=== PATIENT | female | born 1970 | race African-American/Black ===

== ENCOUNTER 2017-08-18 05:06 | Inpatient (IN) ==
[2017-08-18] MEDS ORDERED: methylPREDNISolone SOD SUC 125 MG/2 ML VIAL IV STA (06:04)
[2017-08-18 06:16] LABS: Basophils # 0.1 10*3/uL (0.0-0.2); Basophils % 0.6 % (0.0-0.8); Eosinophils # 0.1 10*3/uL (0.0-0.87); Eosinophils % 0.4 % (0.00-10.9); Hematocrit 34.5 VOL% (35.7-47.0); Hemoglobin 11.8 GM/DL (12.0-16.0); Immature Granulocytes % 0.6 %; Immature Granulocytes Absolute 0.08 #; Lymphocytes # 3.7 10*3/uL (1.4-4.0); Mean Corpuscular HGB Conc 34.2 GM/DL (32-36); Mean Corpuscular Hemoglobin 30 PG (27-34); Mean Corpuscular Volume 88.9 FL (87-102); Mean Platelet Volume 12.1 FL (9.6-12.0); Monocytes # 1.1 10*3/uL (0.11-0.8); Monocytes % 7.6 % (1.7-12.7); Neutrophils # 9.3 10*3/uL (1.4-7.4); Neutrophils % 64.8 % (38.7-73.9); Platelet Count 272 T/CUMM (130-400); Red Blood Count 3.88 MC/CUMM (3.8-5.5); Red Cell Distribution Width 11.8 % (9.3-17.3); White Blood Count 14.3 T/CUMM (4-12)
[2017-08-18] MEDS: ALBUTEROL 2.5 MG/3 ML NEB RESP TX SCH ×2 (06:19→06:20)
[2017-08-18] MEDS ORDERED: methylPREDNISolone SOD SUC 40 MG/1 ML VIAL ONE (06:20)
[2017-08-18] MEDS ORDERED: LEVOFLOXACIN INJ 750 MG in PREMIX 1 EACH IV STA (07:49)
[2017-08-18] MEDS ORDERED: LEVOFLOXACIN INJ 150 ML IV ONE (07:53)
[2017-08-18] MEDS ORDERED: ALBUTEROL 2.5 MG/3 ML NEB RESP TX PRN (09:27)
[2017-08-18] MEDS ORDERED: ACETAMINOPHEN 325 MG TABLET PO PRN (09:29)
[2017-08-18] MEDS ORDERED: ZALEPLON 5 MG CAPSULE PO PRN (09:29)
[2017-08-18] MEDS ORDERED: ONDANSETRON 4 MG/2 ML VIAL IV PRN (09:29)
[2017-08-18] MEDS ORDERED: MORPHINE 2 MG/1 ML SYRINGE IV PRN (09:29)
[2017-08-18] MEDS: LEVOFLOXACIN INJ 750 MG in PREMIX 1 EACH IV SCH (10:07)
[2017-08-18] MEDS: SODIUM CHLORIDE 0.9% 1,000 ML IV SCH ×2 (10:11→21:00)
[2017-08-18 10:40] LABS: Apearance,Urine Clear (Clear); Urine Color Straw (Yellow); Urine Specific Gravity 1.005 (1.001-1.035)
[2017-08-18 10:41] LABS: Bilirubin,Urine Negative (Negative); Blood, Urine Negative (Negative); Glucose,Urine (UA) Negative (Negative); Ketones,Urine Negative (Negative); Nitrite,Urine Negative (Negative); Protein,Urine Negative; Urine Urobilinogen 0.2 EU/DL (0.2-1.0)
[2017-08-18 10:42] LABS: Basophils % 0.3 % (0.0-0.8); Eosinophils % 0.1 % (0.00-10.9); Hematocrit 37.8 VOL% (35.7-47.0); Hemoglobin 11.8 GM/DL (12.0-16.0); Immature Granulocytes % 0.6 %; Immature Granulocytes Absolute 0.09 #; Lymphocytes # 1.2 10*3/uL (1.4-4.0); Lymphocytes % 8.6 % (21.3-54.2); Mean Corpuscular HGB Conc 31.2 GM/DL (32-36); Mean Corpuscular Hemoglobin 29 PG (27-34); Mean Corpuscular Volume 93.6 FL (87-102); Mean Platelet Volume 12.7 FL (9.6-12.0); Monocytes # 0.4 10*3/uL (0.11-0.8); Monocytes % 2.6 % (1.7-12.7); Neutrophils # 12.6 10*3/uL (1.4-7.4); Neutrophils % 87.8 % (38.7-73.9); Platelet Count 227 T/CUMM (130-400); Red Blood Count 4.04 MC/CUMM (3.8-5.5); Red Cell Distribution Width 11.9 % (9.3-17.3); White Blood Count 14.3 T/CUMM (4-12)
[2017-08-18] MEDS: PIPERACILLIN/TAZOBACTAM 3,375 MG in SODIUM CHLORIDE 0.9% 100 ML IV SCH ×2 (10:42→18:04)
[2017-08-18 11:13] LABS: Albumin 3.5 G/DL (3.4-5.0); Bilirubin,Total 0.7 MG/DL (0.2-1.0); Potassium 3.6 MMOL/L (3.5-5.1); Total Protein 7.7 G/DL (6.4-8.3)
[2017-08-18 11:15] LABS: Lactic Acid 5.4 MMOL/L (0.4-2.0)
[2017-08-18 11:50] LABS: Risk Ratio 4.87; Thyroid Stimulating Hormone 0.926 uIU/ml (0.358-3.74)
[2017-08-18 12:00] LABS: HIV Antigen/Antibody Result Nonreactive (Nonreactive)
[2017-08-18] MEDS ORDERED: guaiFENesin/CODEINE 5 ML LIQUID PO PRN (12:13)
[2017-08-18] MEDS: ALBUTEROL/IPRATROPIUM 3 ML NEB RESP TX SCH ×2 (14:21→19:59)
[2017-08-18 15:55] LABS: Lactic Acid 3.7 MMOL/L (0.4-2.0)
[2017-08-18] MEDS: guaiFENesin/DM ER 600-30 MG TABLET PO SCH (21:00)
[2017-08-18] MEDS: DOCUSATE SODIUM 100 MG CAPSULE PO SCH (21:00)
[2017-08-18] MEDS: ENOXAPARIN 40 MG/0.4 ML SYRINGE SUBCUT SCH (21:00)
[2017-08-19] MEDS: ALBUTEROL/IPRATROPIUM 3 ML NEB RESP TX SCH ×4 (01:15→19:38)
[2017-08-19] MEDS: PIPERACILLIN/TAZOBACTAM 3,375 MG in SODIUM CHLORIDE 0.9% 100 ML IV SCH (02:54)
[2017-08-19 06:29] LABS: Basophils # 0.1 10*3/uL (0.0-0.2); Basophils % 0.4 % (0.0-0.8); Eosinophils % 0.2 % (0.00-10.9); Hematocrit 33.5 VOL% (35.7-47.0); Hemoglobin 10.7 GM/DL (12.0-16.0); Immature Granulocytes % 0.6 %; Immature Granulocytes Absolute 0.07 #; Lymphocytes # 3.1 10*3/uL (1.4-4.0); Lymphocytes % 27.3 % (21.3-54.2); Mean Corpuscular HGB Conc 31.9 GM/DL (32-36); Mean Corpuscular Hemoglobin 29 PG (27-34); Mean Corpuscular Volume 91.8 FL (87-102); Mean Platelet Volume 11.6 FL (9.6-12.0); Monocytes % 9.1 % (1.7-12.7); Neutrophils # 7.1 10*3/uL (1.4-7.4); Neutrophils % 62.4 % (38.7-73.9); Platelet Count 242 T/CUMM (130-400); Red Blood Count 3.65 MC/CUMM (3.8-5.5); Red Cell Distribution Width 11.9 % (9.3-17.3); White Blood Count 11.4 T/CUMM (4-12)
[2017-08-19 07:14] LABS: Albumin 3.1 G/DL (3.4-5.0); Bilirubin,Total 1.3 MG/DL (0.2-1.0); Calcium 8.4 MG/DL (8.5-10.1); Osmolality,Calculated 283.8 MOS/KG (273-304); Potassium 3.7 MMOL/L (3.5-5.1); Total Protein 6.6 G/DL (6.4-8.3)
[2017-08-19] MEDS: PANTOPRAZOLE 40 MG TABLET PO SCH (08:31)
[2017-08-19] MEDS: LEVOFLOXACIN INJ 750 MG in PREMIX 1 EACH IV SCH (08:31)
[2017-08-19] MEDS: DOCUSATE SODIUM 100 MG CAPSULE PO SCH ×2 (08:34→21:26)
[2017-08-19] MEDS: SODIUM CHLORIDE 0.9% 1,000 ML IV SCH ×3 (08:34→21:02)
[2017-08-19] MEDS: guaiFENesin/DM ER 600-30 MG TABLET PO SCH ×2 (10:58→21:26)
[2017-08-19] MEDS: BENZONATATE 100 MG CAPSULE PO SCH ×2 (12:35→21:26)
[2017-08-19] MEDS: methylPREDNISolone SOD SUC 40 MG/1 ML VIAL IV SCH ×2 (12:35→21:02)
[2017-08-19] MEDS: ENOXAPARIN 40 MG/0.4 ML SYRINGE SUBCUT SCH (21:26)
[2017-08-20] MEDS: ALBUTEROL/IPRATROPIUM 3 ML NEB RESP TX SCH ×5 (00:34→23:41)
[2017-08-20] MEDS: SODIUM CHLORIDE 0.9% 1,000 ML IV SCH ×3 (01:52→21:05)
[2017-08-20] MEDS: BENZONATATE 100 MG CAPSULE PO SCH ×3 (09:08→21:02)
[2017-08-20] MEDS: guaiFENesin/DM ER 600-30 MG TABLET PO SCH ×2 (09:08→21:02)
[2017-08-20] MEDS: DOCUSATE SODIUM 100 MG CAPSULE PO SCH ×2 (09:08→21:02)
[2017-08-20] MEDS: PANTOPRAZOLE 40 MG TABLET PO SCH (09:08)
[2017-08-20] MEDS: methylPREDNISolone SOD SUC 40 MG/1 ML VIAL IV SCH ×2 (10:00→21:03)
[2017-08-20] MEDS: LEVOFLOXACIN INJ 750 MG in PREMIX 1 EACH IV SCH (10:00)
[2017-08-20] MEDS: MONTELUKAST 10 MG TABLET PO SCH (15:59)
[2017-08-20] MEDS: ENOXAPARIN 40 MG/0.4 ML SYRINGE SUBCUT SCH (21:03)
[2017-08-21] MEDS: ALBUTEROL/IPRATROPIUM 3 ML NEB RESP TX SCH ×3 (07:29→20:13)
[2017-08-21] MEDS: SODIUM CHLORIDE 0.9% 1,000 ML IV SCH ×2 (08:13→17:14)
[2017-08-21] MEDS: DOCUSATE SODIUM 100 MG CAPSULE PO SCH ×2 (08:14→21:23)
[2017-08-21] MEDS: LEVOFLOXACIN INJ 750 MG in PREMIX 1 EACH IV SCH (08:14)
[2017-08-21] MEDS: guaiFENesin/DM ER 600-30 MG TABLET PO SCH ×3 (08:14→21:23)
[2017-08-21] MEDS: MONTELUKAST 10 MG TABLET PO SCH ×3 (08:14→21:23)
[2017-08-21] MEDS: PANTOPRAZOLE 40 MG TABLET PO SCH (08:14)
[2017-08-21] MEDS: BENZONATATE 100 MG CAPSULE PO SCH ×3 (08:14→21:24)
[2017-08-21] MEDS: methylPREDNISolone SOD SUC 40 MG/1 ML VIAL IV SCH ×2 (08:16→21:24)
[2017-08-21 14:33] LABS: Procalcitonin, S < 0.10 ng/mL (<=0.15)
[2017-08-21] MEDS: ENOXAPARIN 40 MG/0.4 ML SYRINGE SUBCUT SCH ×2 (19:39→21:23)
[2017-08-22] MEDS: ALBUTEROL/IPRATROPIUM 3 ML NEB RESP TX SCH ×3 (01:33→13:55)
[2017-08-22] MEDS: SODIUM CHLORIDE 0.9% 1,000 ML IV SCH ×2 (05:52→14:45)
[2017-08-22 07:51] VITALS: BP 162/99
[2017-08-22] MEDS: methylPREDNISolone SOD SUC 40 MG/1 ML VIAL IV SCH (09:23)
[2017-08-22] MEDS: guaiFENesin/DM ER 600-30 MG TABLET PO SCH (09:23)
[2017-08-22] MEDS: MONTELUKAST 10 MG TABLET PO SCH (09:23)
[2017-08-22] MEDS: DOCUSATE SODIUM 100 MG CAPSULE PO SCH (09:24)
[2017-08-22] MEDS: LEVOFLOXACIN INJ 750 MG in PREMIX 1 EACH IV SCH (09:24)
[2017-08-22] MEDS: BENZONATATE 100 MG CAPSULE PO SCH (09:27)
[2017-08-22] MEDS: PANTOPRAZOLE 40 MG TABLET PO SCH (13:32)
== END 2017-08-22 14:52 | disposition home or self-care (01) | DRG 194 ==
LOC: N.ED 05:06 → SUATTDRO 08:17 → N.EDINP 08:17 → N.2E 09:47
PROVIDERS: ADMIT Internal Medicine; ATTEND Internal Medicine

== ENCOUNTER 2019-08-10 08:06 | Observation (INO) ==
[2019-08-10] MEDS ORDERED: ALBUTEROL/IPRATROPIUM 3 ML NEB RESP TX STA (10:21)
[2019-08-10] MEDS ORDERED: ALBUTEROL NEB SOLN 5 MG/ML 20 ML/BOTTLE CONT NEB STA (11:29)
[2019-08-10] MEDS ORDERED: DEXAMETHASONE 4 MG/1 ML VIAL IM STA (11:29)
[2019-08-10] MEDS ORDERED: KETOROLAC 60 MG/2 ML VIAL IM STA (11:29)
[2019-08-10] MEDS ORDERED: BUDESONIDE 0.5 MG/2 ML NEB RESP TX STA (13:17)
[2019-08-10] MEDS ORDERED: methylPREDNISolone SOD SUC 125 MG/2 ML VIAL IV STA (13:17)
[2019-08-10] MEDS ORDERED: LEVOFLOXACIN INJ 750 MG in PREMIX 1 EACH IV STA (13:18)
[2019-08-10] MEDS ORDERED: methylPREDNISolone SOD SUC 125 MG/2 ML VIAL ONE (13:37)
[2019-08-10] MEDS ORDERED: LEVOFLOXACIN INJ 150 ML IV ONE (13:38)
[2019-08-10] MEDS ORDERED: ARFORMOTEROL 15 MCG/2 ML NEB RESP TX STA (13:47)
[2019-08-10 13:49] LABS: Basophils # 0.1 10*3/uL (0.0-0.2); Basophils % 0.9 % (0.0-0.8); Eosinophils # 0.1 10*3/uL (0.0-0.87); Eosinophils % 1.5 % (0.00-10.9); Hematocrit 39.8 VOL% (35.7-47.0); Hemoglobin 12.8 GM/DL (12.0-16.0); Immature Granulocytes % 0.4 %; Immature Granulocytes Absolute 0.03 #; Lymphocytes # 1.7 10*3/uL (1.4-4.0); Lymphocytes % 21.4 % (21.3-54.2); Mean Corpuscular HGB Conc 32.2 GM/DL (32-36); Mean Corpuscular Volume 90.2 FL (87-102); Mean Platelet Volume 12.4 FL (9.6-12.0); Monocytes % 7.4 % (1.7-12.7); Neutrophils % 68.4 % (38.7-73.9); Platelet Count 241 T/CUMM (130-400); Red Blood Count 4.41 MC/CUMM (3.8-5.5); Red Cell Distribution Width 11.9 % (9.3-17.3)
[2019-08-10 14:16] LABS: Alanine Aminotransferase 26 U/L (13-56); Albumin 3.7 G/DL (3.4-5.0); Alkaline Phosphatase 65 U/L (45-117); Aspartate Amino Transferase 18 U/L (0-37); Blood Urea Nitrogen 9 MG/DL (7-18); Calcium 8.9 MG/DL (8.5-10.1); Estimated Glom Filtration Rate 104 ML/MIN; Glucose 121 MG/DL (74-106); Osmolality,Calculated 280.3 MOS/KG (273-304); Total Protein 8.5 G/DL (6.4-8.3)
[2019-08-10] MEDS ORDERED: SODIUM CHLORIDE 0.9% 1,000 ML IV STA ×2 (14:17→16:57)
[2019-08-10] MEDS ORDERED: POTASSIUM CHLORIDE 20 MEQ TABLET PO STA (14:44)
[2019-08-10] MEDS ORDERED: ACETAMINOPHEN 325 MG TABLET PO PRN (14:55)
[2019-08-10] MEDS: methylPREDNISolone SOD SUC 125 MG/2 ML VIAL IV SCH ×2 (17:21→22:03)
[2019-08-10] MEDS: PANTOPRAZOLE 40 MG TABLET PO SCH (17:29)
[2019-08-10] MEDS: BUDESONIDE 0.5 MG/2 ML NEB RESP TX SCH (20:02)
[2019-08-10] MEDS: ARFORMOTEROL 15 MCG/2 ML NEB RESP TX SCH (20:02)
[2019-08-10] MEDS: ALBUTEROL/IPRATROPIUM 3 ML NEB RESP TX SCH (20:02)
[2019-08-10] MEDS ORDERED: ENOXAPARIN 40 MG/0.4 ML SYRINGE SUBCUT SCH (21:00)
[2019-08-11] MEDS: ALBUTEROL/IPRATROPIUM 3 ML NEB RESP TX SCH ×2 (00:23→07:40)
[2019-08-11] MEDS: methylPREDNISolone SOD SUC 125 MG/2 ML VIAL IV SCH ×2 (03:45→08:24)
[2019-08-11] MEDS: BUDESONIDE 0.5 MG/2 ML NEB RESP TX SCH (07:40)
[2019-08-11] MEDS: ARFORMOTEROL 15 MCG/2 ML NEB RESP TX SCH (07:47)
[2019-08-11] MEDS: PANTOPRAZOLE 40 MG TABLET PO SCH (08:24)
[2019-08-11] MEDS ORDERED: LEVOFLOXACIN 500 MG TABLET PO SCH (09:00)
[2019-08-11 11:34] VITALS: BP 139/87
[2019-08-11] MEDS ORDERED: MONTELUKAST 10 MG TABLET PO SCH (14:57)
== END 2019-08-11 14:31 | disposition home or self-care (01) ==
LOC: N.EDINP 08:06 → N.ED 08:06 → N.2W 17:38
PROVIDERS: ADMIT Internal Medicine; ATTEND Internal Medicine

== ENCOUNTER 2019-09-24 14:21 | Inpatient (IN) ==
[2019-09-24] MEDS ORDERED: SODIUM CHLORIDE 0.9% 1,000 ML IV STA ×2 (14:46→16:30)
[2019-09-24] MEDS ORDERED: METOCLOPRAMIDE 10 MG/2 ML VIAL IV STA (14:46)
[2019-09-24] MEDS ORDERED: ACETAMINOPHEN 500 MG TABLET PO STA (14:46)
[2019-09-24] MEDS ORDERED: KETOROLAC 30 MG/1 ML VIAL IV STA (14:46)
[2019-09-24] MEDS ORDERED: ORPHENADRINE 60 MG/2 ML VIAL IV STA (14:51)
[2019-09-24] MEDS ORDERED: ONDANSETRON 4 MG/2 ML VIAL IV STA (14:51)
[2019-09-24 15:29] LABS: Basophils # 0.1 10*3/uL (0.0-0.2); Basophils % 0.2 % (0.0-0.8); Hematocrit 41.5 VOL% (35.7-47.0); Immature Granulocytes % 0.7 %; Immature Granulocytes Absolute 0.17 #; Lymphocytes # 1.3 10*3/uL (1.4-4.0); Lymphocytes % 5.4 % (21.3-54.2); Mean Corpuscular HGB Conc 31.3 GM/DL (32-36); Mean Corpuscular Volume 92.2 FL (87-102); Mean Platelet Volume 11.9 FL (9.6-12.0); Monocytes % 3.6 % (1.7-12.7); Neutrophils % 90.1 % (38.7-73.9); Platelet Count 279 T/CUMM (130-400); White Blood Count 24.5 T/CUMM (4-12)
[2019-09-24 15:51] LABS: Albumin 3.6 G/DL (3.4-5.0); Bilirubin,Total 0.9 MG/DL (0.2-1.0); Osmolality,Calculated 271.8 MOS/KG (273-304); Total Protein 7.6 G/DL (6.4-8.3)
[2019-09-24 16:11] LABS: Band Neutrophils 1 % (0-10); Lymphocytes 5 % (20-55); Segmented Neutrophils 92 % (50-85); Total Cells Counted 100
[2019-09-24 16:13] LABS: Platelet Estimate Normal
[2019-09-24 16:30] LABS: Apearance,Urine CLOUDY (Clear); Bilirubin,Urine Negative (Negative); Blood, Urine Negative (Negative); Glucose,Urine (UA) Negative (Negative); Ketones,Urine Negative (Negative); Mucus,Urine Few /LPF (Occasional); Nitrite,Urine Negative (Negative); Protein,Urine Negative; Squamous Epithelial Cell,Urine Occasional /HPF (0-10); Urine Color Yellow (Yellow); Urine Specific Gravity 1.025 (1.001-1.035); Urine Urobilinogen < 2.0 EU/DL (0.2-1.0)
[2019-09-24 16:32] LABS: PT Patient Result 11.2 SECS (9.6-12.2)
[2019-09-24] MEDS ORDERED: PIPERACILLIN/TAZOBACTAM 3,375 MG in SODIUM CHLORIDE 0.9% 100 ML IV STA (16:50)
[2019-09-24] MEDS ORDERED: metroNIDAZOLE INJ 500 MG in PREMIX 1 EACH IV STA (17:24)
[2019-09-24] MEDS ORDERED: KETOROLAC 30 MG/1 ML VIAL IV ONE (22:56)
[2019-09-24] MEDS ORDERED: ACETAMINOPHEN 325 MG TABLET PO ONE (22:58)
[2019-09-25] MEDS: PIPERACILLIN/TAZOBACTAM 3,375 MG in SODIUM CHLORIDE 0.9% 100 ML IV SCH ×3 (02:11→17:59)
[2019-09-25 04:49] LABS: Basophils % 0.2 % (0.0-0.8); Hematocrit 36.2 VOL% (35.7-47.0); Hemoglobin 11.4 GM/DL (12.0-16.0); Immature Granulocytes % 0.4 %; Immature Granulocytes Absolute 0.06 #; Lymphocytes # 1.5 10*3/uL (1.4-4.0); Lymphocytes % 9.9 % (21.3-54.2); Mean Corpuscular HGB Conc 31.5 GM/DL (32-36); Mean Corpuscular Volume 92.6 FL (87-102); Monocytes % 6.7 % (1.7-12.7); Neutrophils % 82.8 % (38.7-73.9); Platelet Count 217 T/CUMM (130-400); Red Blood Count 3.91 MC/CUMM (3.8-5.5)
[2019-09-25 05:10] LABS: Calcium 8.2 MG/DL (8.5-10.1); Osmolality,Calculated 278.5 MOS/KG (273-304)
[2019-09-25] MEDS: ACETAMINOPHEN 325 MG TABLET PO PRN (10:44)
[2019-09-25] MEDS: MONTELUKAST 10 MG TABLET PO SCH (10:45)
[2019-09-26 05:01] LABS: Basophils # 0.1 10*3/uL (0.0-0.2); Basophils % 0.5 % (0.0-0.8); Eosinophils % 0.3 % (0.00-10.9); Hematocrit 36.9 VOL% (35.7-47.0); Hemoglobin 11.6 GM/DL (12.0-16.0); Immature Granulocytes % 0.3 %; Immature Granulocytes Absolute 0.03 #; Lymphocytes # 1.8 10*3/uL (1.4-4.0); Lymphocytes % 16.5 % (21.3-54.2); Mean Corpuscular HGB Conc 31.4 GM/DL (32-36); Mean Corpuscular Volume 91.8 FL (87-102); Mean Platelet Volume 12.3 FL (9.6-12.0); Monocytes % 6.8 % (1.7-12.7); Neutrophils % 75.6 % (38.7-73.9); Platelet Count 218 T/CUMM (130-400); Red Blood Count 4.02 MC/CUMM (3.8-5.5); Red Cell Distribution Width 11.7 % (9.3-17.3); White Blood Count 10.8 T/CUMM (4-12)
[2019-09-26 05:31] LABS: Calcium 9.1 MG/DL (8.5-10.1); Osmolality,Calculated 276.4 MOS/KG (273-304)
[2019-09-26] MEDS: MONTELUKAST 10 MG TABLET PO SCH (08:52)
[2019-09-26] MEDS: cefTRIAXone 1,000 MG in SYRINGE 1 EACH IV SCH (08:52)
[2019-09-26] MEDS: POTASSIUM CHLORIDE 20 MEQ TABLET PO PRN ×4 (08:52→21:07)
[2019-09-26] MEDS: ACETAMINOPHEN 325 MG TABLET PO PRN (08:52)
[2019-09-26] MEDS: SODIUM CHLOR 0.9% KCL 20 MEQ 20 MEQ/1,000 ML BAG IV SCH ×2 (08:55→19:30)
[2019-09-26] MEDS: POTASSIUM BICARB EFFERVESCENT 25 MEQ TABLET PO SCH ×3 (10:22→21:07)
[2019-09-26] MEDS: PANTOPRAZOLE 40 MG TABLET PO SCH ×2 (10:22→21:07)
[2019-09-26] MEDS ORDERED: ONDANSETRON 4 MG/2 ML VIAL IV PRN (10:42)
[2019-09-26] MEDS: IBUPROFEN 800 MG TABLET PO PRN ×2 (12:21→21:10)
[2019-09-27] MEDS: SODIUM CHLOR 0.9% KCL 20 MEQ 20 MEQ/1,000 ML BAG IV SCH (05:51)
[2019-09-27] MEDS: cefTRIAXone 1,000 MG in SYRINGE 1 EACH IV SCH (09:14)
[2019-09-27] MEDS: PANTOPRAZOLE 40 MG TABLET PO SCH (09:14)
[2019-09-27] MEDS: MONTELUKAST 10 MG TABLET PO SCH (09:14)
[2019-09-27] MEDS ORDERED: CHOLESTYRAMINE 4 GM PACK PO SCH (11:23)
[2019-09-27 12:16] VITALS: BP 141/90
== END 2019-09-27 15:12 | disposition home or self-care (01) | DRG 392 ==
LOC: N.ED 14:21 → N.EDINP 17:56 → N.2E 20:36
PROVIDERS: ADMIT Internal Medicine; ATTEND Internal Medicine